=== PATIENT | male | born 1970 | race Hispanic/Latino ===

== ENCOUNTER 2017-03-30 20:55 | Observation (INO) | payer MEDICAID ==
[2017-03-30 20:55] VITALS: BMI 30.7
--- NOTE | 2017-03-30 21:51 | C.PDOC ---
History Of Present Illness 46 year old patient brought to the ED by ambulance after he expressed suicidal ideation to his friend prior to arrival; friend called 911. Patient denies any suicidal or homicidal ideation currently, but admits to having had them recently. Patient has a history of depression/anxiety and notes he has a psychiatrist. Patient denies any physical complaints. Time Seen by Provider: 03/30/17 21:28 Chief Complaint (Nursing): Psychiatric Evaluation History Per: Patient History/Exam Limitations: no limitations Onset/Duration Of Symptoms: Intermittent Episodes Suicide/Self Injury Attempted (Context): None Severity: Moderate Pain Scale Rating Of: 0 Associated Symptoms: denies: Suicidal Thoughts Recent travel outside of the [place]: No Additional History Per: Friend Past Medical History Reviewed: Historical Data, Nursing Documentation, Vital Signs Vital Signs: Last Vital Signs Temp 97.9 F 03/31/17 05:22 Pulse 79 03/31/17 05:22 Resp 18 03/31/17 05:22 BP 121/70 03/31/17 05:22 Pulse Ox 97 03/31/17 06:50 - Medical History PMH: Asthma, Depression, Fibromyalgia Surgical History: Tonsillectomy - [facility] PSYCHIAT DRUG THERAP NEC (06/11/15) Family History: States: No Known Family Hx - Social History Hx Alcohol Use: Yes Hx Substance Use: Yes (+ for meth, cannabis) - Immunization History Hx Tetanus Toxoid Vaccination: No Hx Influenza Vaccination: Yes Hx Pneumococcal Vaccination: Yes Review Of Systems Except As Marked, All Systems Reviewed And Found Negative. Constitutional: Negative for: Fever, Chills Cardiovascular: Negative for: Chest Pain, Palpitations Respiratory: Negative for: Cough, Shortness of Breath Gastrointestinal: Negative for: Nausea, Vomiting, Abdominal Pain, Diarrhea Psych: Positive for: Anxiety, Depression, Suicidal ideation. Negative for: Other (homicidal ideation) Physical Exam - Physical Exam Appears: Well, Non-toxic, No Acute Distress Skin: Warm, Dry Head: Normacephalic Eye(s): bilateral: Normal Inspection Oral Mucosa: Moist Neck: Supple Cardiovascular: Rhythm Regular Respiratory: Normal Breath Sounds, No Rales, No Rhonchi, No Wheezing Gastrointestinal/Abdominal: Normal Exam, Bowel Sounds, Soft, No Tenderness Back: Normal Inspection Extremity: Normal ROM Extremity: Bilateral: Atraumatic Neurological/Psych: Oriented x3 ED Course And Treatment - Laboratory Results Result Diagrams: 03/30/17 22:03 03/30/17 22:03 ECG: Interpreted By Me, Viewed By Me (NSR 84 bpm, left axis deviation, LBBB, no acute ST changes - unchanged from prior EKG 06/21/15) ECG Interpretation: No Acute Changes O2 Sat by Pulse Oximetry: 97 (room air) Pulse Ox Interpretation: Normal - Radiology CXR: Interpreted by Me, Viewed By Me (no infiltrates/effusions) CXR Interpretation: Yes: No Acute Disease Progress Note: Blood work, UA, UDs ordered and reviewed. 10:55pm- Patient medically cleared. Pending crisis. 3:15am- Patient resting comfortably, in no distress. 6:30am- Patient currently being interviewed by [facility] screener. Disposition - Disposition Disposition Time: 07:00 Condition: STABLE - Clinical Impression Clinical Impression: Suicidal ideation - Scribe Statement The provider has reviewed the documentation as recorded by the Scribe Jane Gar Provider Attestation: All medical record entries made by the Scribe were at my direction and personally dictated by me. I have reviewed the chart and agree that the record accurately reflects my personal performance of the history, physical exam, medical decision making, and the department course for this patient. I have also personally directed, reviewed, and agree with the discharge instructions and disposition. Physician Patient Turnover Patient Signed Over To: Percy Arreola DO Handoff Comments: pending [facility] screening, dispo
[2017-03-30 22:12] LABS: RBC URINE < 1 /hpf (0-3); URINE BILIRUBIN NEGATIVE (NEGATIVE); URINE BLOOD NEGATIVE (NEGATIVE); URINE COLOR Straw (YELLOW); URINE GLUCOSE (UA) NORMAL (Normal); URINE KETONE NEGATIVE (NEGATIVE); URINE LEUKOCYTE ESTERASE NEG Leu/uL (Negative); URINE PROTEIN NEGATIVE (NEGATIVE); URINE UROBILINOGEN NORMAL mg/dL (0.2-1.0)
[2017-03-30 22:13] LABS: BASO # 0.1 K/uL (0.0-0.2); BASO % 0.6 % (0.0-2.0); EOS # 0.2 K/uL (0.0-0.7); HEMATOCRIT 39.7 % (35.0-51.0); LYMPH # 1.4 K/uL (1.0-4.3); LYMPH % 15.8 % (20.0-40.0); MEAN CELL VOLUME 83.9 fL (80.0-94.0); MEAN CORPUSCULAR HEMOGLOBIN 28.6 pg (27.0-31.0); MEAN CORPUSCULAR HGB CONC 34.1 g/dL (33.0-37.0); MEAN PLATELET VOLUME 7.6 fL (7.2-11.7); MONO # 0.5 K/uL (0.0-0.8); MONO % 5.8 % (0.0-10.0); RED CELL DISTRIBUTION WIDTH 13.9 % (11.5-14.5); WHITE BLOOD COUNT 8.8 K/uL (4.8-10.8)
[2017-03-30 22:18] LABS: CHLORIDE 106 mmol/L (98-107); SODIUM 139 mmol/L (132-148)
[2017-03-30 22:20] LABS: GFR AFRICAN-AMERICAN > 60
[2017-03-30 22:21] LABS: ALB/GLOB RATIO 1.4 (1.0-2.1); ALKALINE PHOSPHATASE 72 U/L (38-126); ALT/SGPT 26 U/L (21-72); AST/SGOT 18 U/L (17-59); BILIRUBIN,TOTAL 0.5 mg/dL (0.2-1.3); BLOOD UREA NITROGEN 15 mg/dL (9-20); CALCIUM 8.8 mg/dl (8.6-10.4); CARBON DIOXIDE 21 mmol/L (22-30); GLUCOSE,RANDOM 108 mg/dL (75-110); TOTAL PROTEIN 7.2 g/dL (6.3-8.3)
[2017-03-30 22:22] LABS: ALCOHOL SERUM < 10 mg/dl (0-10)
[2017-03-30 22:51] VITALS: RESP 18
[2017-03-31 05:22] VITALS: O2SAT 97
[2017-03-31 07:13] VITALS: BP 122/78; PULSE 70; TEMP 97.5
--- NOTE | 2017-03-31 08:40 | RAD ---
PROCEDURE: CHEST RADIOGRAPH, 1 VIEW HISTORY: MED CLEARANCE COMPARISON: None available. FINDINGS: LUNGS: Clear. PLEURA: No pneumothorax or pleural fluid seen. CARDIOVASCULAR: Normal. OSSEOUS STRUCTURES: No significant abnormalities. VISUALIZED UPPER ABDOMEN: Normal. OTHER FINDINGS: None. IMPRESSION: No active disease.
--- NOTE | 2017-03-31 12:43 | CARD ---
APPROVED REPORT EKG Measurement Heart [id number] <Conclusion> Normal sinus rhythm Left axis deviation Left bundle branch block Abnormal ECG
== END 2017-03-31 07:11 | disposition home or self-care (01) ==
LOC: C.ER 20:55 → C.9OBSV 23:50
PROVIDERS: ADMIT Emergency Medicine; ATTEND Emergency Medicine
DX: R45.851 Suicidal ideations (principal); J45.909 Unspecified asthma, uncomplicated; M79.7 Fibromyalgia; F12.10 Cannabis abuse, uncomplicated
CPT/HCPCS: 71010; 80053; 80320; 80324; 80345; 80346; 80349; 80353; 80358; 80361; 81001; 83992; 85025; 93005; G0378